=== PATIENT | female | born 1990 | race Hispanic/Latino ===

== ENCOUNTER 2023-11-15 21:46 | Emergency (ER) | payer OTHER ==
[~2023-11-15] VITALS: Ht 160 cm; Wt 90.3 kg
[~2023-11-15 21:46] MED LIST: MEDROXYPROGESTE10 MG PO
[2023-11-15] MEDS ORDERED: NAPROSYN500 MG PO (23:31)
[2023-11-15] MEDS: IBUPROFEN 600 MG TAB PO STA (23:39)
[2023-11-15] MEDS ORDERED: IBUPROFEN 600 MG TAB ONE (23:41)
[2023-11-15 23:46] VITALS: BP 119/84; PULSE 71; RESP 18; TEMP 98.6; O2SAT 99
== END 2023-11-15 23:48 | disposition home or self-care (01) ==
LOC: FSED 21:56
DX: M25.561 Pain in right knee (principal); M71.21 Synovial cyst of popliteal space [Baker], right knee
CPT/HCPCS: 99284